=== PATIENT | female | born 1940 | race Caucasian/White ===

== ENCOUNTER 2018-10-11 07:54 | Observation (INO) | payer MEDICARE, OTHER ==
[2018-10-10 13:20] LABS: BASOPHILS % 0.7 % (0.0-1.0); EOSINOPHILS # (AUTO) 0.1 (0.0-0.4); EOSINOPHILS % 2.2 % (0.0-6.0); HEMATOCRIT 43.7 % (34.2-44.1); HEMOGLOBIN 15.1 g/dL (12.0-16.0); LYMPHOCYTES # (AUTO) 1.6 (1.0-3.2); LYMPHOCYTES % 26.8 % (18.0-39.1); MEAN CORPUSCULAR HEMOGLOBIN 30.6 pg (28-32); MEAN CORPUSCULAR HGB CONC 34.6 g/dL (31-35); MEAN CORPUSCULAR VOLUME 88.5 fL (81-99); MONOCYTES # (AUTO) 0.6 (0.2-0.8); MONOCYTES % 9.9 % (4.4-11.3); NEUTROPHILS # (AUTO) 3.6 (2.1-6.9); NEUTROPHILS % 60.1 % (38.7-80.0); PLATELET COUNT 156 x10e3/uL (140-360); RED BLOOD COUNT 4.94 x10e6/uL (3.6-5.1); RED CELL DISTRIBUTION WIDTH 12.9 % (11.7-14.4)
--- NOTE | 2018-10-10 13:24 | Diagnostic Imaging Report ---
EXAMINATION: CHEST 2 VIEWS INDICATION: Pre-admit. COMPARISON: None FINDINGS: TUBES and LINES: None. LUNGS: Lungs are well inflated. Lungs are clear. There is no evidence of pneumonia or pulmonary edema. PLEURA: No pleural effusion or pneumothorax. HEART AND MEDIASTINUM: The cardiomediastinal silhouette is unremarkable. Tortuous thoracic aorta with atherosclerotic calcifications. BONES AND SOFT TISSUES: There is moderate loss of vertebral body height at T11 and T12 with focal kyphosis at this level, with an angulation of 47 degrees. UPPER ABDOMEN: No free air under the diaphragm. Surgical changes in the left upper abdomen. IMPRESSION: Clear lungs. Age-indeterminate moderate loss vertebral body height at T11 and T12 with focal kyphosis at this level. Signed by: Dr. Aaron Bosch MD on 10/10/2018 1:20 PM
[2018-10-10 13:31] LABS: INR 0.92; PROTHROMBIN TIME 12.9 seconds (11.9-14.5)
[2018-10-10 13:32] LABS: PARTIAL THROMBOPLASTIN TIME 35.9 seconds (23.8-35.5)
[2018-10-10 13:36] LABS: ANION GAP 13.4 mmol/L (8-16); CALCIUM 10.8 mg/dL (8.4-10.2); CREATININE, SERUM 0.99 mg/dL (0.57-1.11); POTASSIUM 4.4 mmol/L (3.5-5.1)
[~2018-10-11] VITALS: Ht 165.1 cm; Wt 81.2 kg
[~2018-10-11 07:54] MED LIST: ACETAMINOPHEN 1000 MG/100 ML 100 ML IV ONE; ALEVE PO; ALPHA LIPOIC A300 MG PO; ATENOLOL50 MG PO; BACITRACIN 50,000 UNIT VIAL ONE; BACTRIM DS TAB1 EACH PO; BUPIVACAINE 0.5%/EPI 30 ML SDV INJ ONE; ECOTRIN81 MG PO; GELATIN SPONGE 12-7MM ONE; HYDROCHLOROTHIA25 MG PO; LABETALOL HCL200 MG PO; LIDOCAINE HCL (LTA) 4 ML SOLN ONE; MECLIZINE HCL12.5 MG PO; NORVASC5 MG PO; POTASSIUM PO; STOOL SOFTENER100 MG PO; TAURINE PO; THROMBIN FOR SOLN 5,000 UNIT VIAL ONE; VITAMIN BCOMPLEX PO
--- OUTSIDE RECORDS SUMMARY | 2018-10-11 07:57 | XMS REPORT ---
Author Author [facility] Address Unknown Phone Unavailable Care Team Providers Care Lath Hand Name Role Phone JULIANNA ANTONIO Unavailable Unavailable SAMANTA SHEEHAN Unavailable Unavailable Problems This patient has no known problems. Allergies, Adverse Reactions, Alerts This patient has no known allergies or adverse reactions. Medications This patient has no known medications. Results Test Description Test Time Test Comments Text Results Atomic Results Result Comments CHEST 2 VIEWS 2018-10-10 13:16:00 [place] [address] Patient Name: DENNISE TRIANA MR #: [id number] : 1940 Age/Sex: 78/F Req #: [id number] Adm Physician: Ordered by: JULIANNA ANTONIO MD Report #: [id number] Location: OR Room/Bed: Procedure: [id number] DX/CHEST 2 VIEWS Exam Date: 10/10/18 Exam Time: 1250 REPORT STATUS: Signed EXAMINATION: CHEST 2 VIEWS INDICATION: Pre-admit. COMPARISON: None FINDINGS: TUBES and LINES: None. LUNGS: Lungs are well inflated. Lungs are clear. There is no evidence of pneumonia or pulmonary edema. PLEURA: No pleural effusion or pneumothorax. HEART AND MEDIASTINUM: The cardiomediastinal silhouette is unremarkable. Tortuous thoracic aorta with atherosclerotic calcifications. BONES AND SOFT TISSUES: There is moderate loss of vertebral body height at T11 and T12 with focal kyphosis at this level, with an angulation of 47 degrees. UPPER ABDOMEN: No free air under the diaphragm. Surgical changes in the left upper abdomen. IMPRESSION: Clear lungs. Age-indeterminate moderate loss vertebral body height at T11 and T12 with focal kyphosis at this level. Signed by: Dr. Wilver Griffin MD on 10/10/2018 1:20 PM Dictated By: WILVER GRIFFIN MD 1320 Transcribed By: CLEO on 10/10/18 1320 COPY TO: JULIANNA ANTONIO MD MRA NECK WO [place] [address] Patient Name: DENNISE TRIANA MR #: [id number] : 1940 Age/Sex: 76/F Req #: [id number] Adm Physician: SAMANTA SHEEHAN MD Ordered by: ROSIBEL COULTER MD Report #: [id number] Location: MED/SURG Room/Bed: [facility] Procedure: [id number] MRI/MRA NECK WO Exam Date: 02/08/17 Exam Time: 954 REPORT STATUS: Signed Examination: MRA NECK AND HEAD WITHOUT CONTRAST History: Unsteady gait. Headache. Comparison studies: No direct comparison. Technique: 2-D and 3-D [id number] MR angiograms of the cervical and intracranial circulations were obtained. MIP images of the arteries were isolated into the right and left cervical circulations and anterior and posterior intracranial circulations, 180 degree projections. Sagittal and coronal MPR images, and axial source images are available for evaluation. Degree of stenosis at the carotid bulbs, if present, will be calculated using NASCET criteria where the smallest diameter at the location of stenosis is compared to the diameter of the more distal non-diseased vessel lumen. Findings: Cervical MRA Aortic arch: Normal 3 great vessel origin. Patent. Internal carotid arteries: No flow abnormalities at the origins of the common carotid arteries, the cervical carotid bifurcations or in the cervical segments. Vertebral arteries: No flow abnormalities at the origins of the vertebral arteries or through its cervical segments (V1-V3). Intracranial MRA: Internal carotid arteries: Patent. Mild atherosclerotic irregularity of the cavernous internal carotid artery on the left. Anterior cerebral arteries: Patent A1 segments. Middle cerebral arteries: Patent M1 segments. Vertebrobasilar circulation: Patent. Posterior cerebral arteries: Patent bilaterally. Anatomical variants: Anterior communicating arteries: Patent. Posterior communicating arteries: Not visualized bilaterally. Vertebral arteries:Codominant. IMPRESSION: 1. No cervical or intracranial arterial stenosis or occlusion. 2. Mild atherosclerotic irregularity of the cavernous segment of the left internal carotid artery without stenosis. Signed by: Dr. Dahlia Jiang M.D. on 02/08/2017 1:54 PM Dictated By: DAHLIA KRISHNAN MD 1354 Transcribed By: CLEO on 02/08/17 1354 COPY TO: ROSIBEL COULTER MD MRA HEAD WO [place] [address] Patient Name: DENNISE TRIANA MR #: [id number] : 1940 Age/Sex: 76/F Req #: [id number] [facility] Physician: SAMANTA SHEEHAN MD Ordered by: ROSIBEL COULTER MD Report #: [id number] Location: MED/SURG Room/Bed: [facility] Procedure: MRI/MRA HEAD WO Exam Date: 02/08/17 Exam Time: 954 REPORT STATUS: Signed Examination: MRA NECK AND HEAD WITHOUT CONTRAST History: Unsteady gait. Headache. Comparison studies: No direct comparison. Technique: 2-D and 3-D [id number] MR angiograms of the cervical and intracranial circulations were obtained. MIP images of the arteries were isolated into the right and left cervical circulations and anterior and posterior intracranial circulations, 180 degree projections. Sagittal and coronal MPR images, and axial source images are available for evaluation. Degree of stenosis at the carotid bulbs, if present, will be calculated using NASCET criteria where the smallest diameter at the location of stenosis is compared to the diameter of the more distal non-diseased vessel lumen. Findings: Cervical MRA Aortic arch: Normal 3 great vessel origin. Patent. Internal carotid arteries: No flow abnormalities at the origins of the common carotid arteries, the cervical carotid bifurcations or in the cervical segments. Vertebral arteries: No flow abnormalities at the origins of the vertebral arteries or through its cervical segments (V1-V3). Intracranial MRA: Internal carotid arteries: Patent. Mild atherosclerotic irregularity of the cavernous internal carotid artery on the left. Anterior cerebral arteries: Patent A1 segments. Middle cerebral arteries: Patent M1 segments. Vertebrobasilar circulation: Patent. Posterior cerebral arteries: Patent bilaterally. Anatomical variants: Anterior communicating arteries: Patent. Posterior communicating arteries: Not visualized bilaterally. Vertebral arteries:Codominant. IMPRESSION: 1. No cervical or intracranial arterial stenosis or occlusion. 2. Mild atherosclerotic irregularity of the cavernous segment of the left internal carotid artery without stenosis. Signed by: Dr. Dahlia Jiang M.D. on 02/08/2017 1:54 PM Dictated By: DAHLIA KRISHNAN MD 1351 Transcribed By: CLEO on 02/08/17 1351 COPY TO: ROSIBEL COULTER MD MRI BRAIN WO [place] [address] Patient Name: DENNISE TRIANA MR #: [id number] : 1940 Age/Sex: 76/F Req #: [id number] Adm Physician: SAMANTA SHEEHAN MD Ordered by: ROSIBEL COULTER MD Report #: [id number] Location: MED/SURG Room/Bed: 1121 Procedure: [id number] MRI/MRI BRAIN WO Exam Date: 02/08/17 Exam Time: 954 REPORT STATUS: Signed Examination: MRI BRAIN WITHOUT CONTRAST History: Unsteady gait. Headache. Comparison studies: Head CT performed February 07, 2017. Technique: Sagittal T2; axial DWI, FLAIR, GRE or SWI, T1, Coronal FLAIR. Intravenous contrast: None Findings: Scalp: No abnormal signal. No masses. Bone marrow: Normal in signal intensity. Brain volume: Adequate for age. No volume loss. Ventricles: Normal in size and configuration. No hydrocephalus. Extra-axial spaces: No abnormalities. Parenchyma: There are patchy areas of T2/FLAIR hyperintensity in the periventricular and subcortical white matter, nonspecific. No masses, hemorrhage, or acute vascular insults. Suprasellar and sellar region: CSF filled sella. Craniocervical junction: No abnormalities. The foramen magnum is patent. No Chiari malformations. Vessels: Normal flow-voids in the arteries and sinuses. Additional findings:Partially visualized disc bulge at C3-C4. IMPRESSION: 1. No acute intracranial abnormalities. No change from prior head CT performed February 07, 2017 when accounting for differences in technique. 2. Unchanged mild chronic microvascular ischemic change. Signed by: Dr. Dahlia Jiang M.D. on 02/08/2017 1:48 PM Dictated By: DAHLIA JIANG MD 1342 Transcribed By: CLEO on 02/08/17 1348 COPY TO: ROSIBEL COULTER MD CT BRAIN WO [place] [address] Patient Name: DENNISE TRIANA #: [id number] : 1940 Age/Sex: 76/F Req #: [id number] [facility] Physician: Ordered by: ROSIBEL COULTER MD Report #: [id number] Location: Room/Bed: Procedure: [id number] CT/CT BRAIN WO Exam Date: 02/07/17 Exam Time: 1245 REPORT STATUS: Signed Examination: CT BRAIN WITHOUT CONTRAST History:Off balance. Falls to the left. Dizziness. Comparison studies:None Technique: Axial images were obtained from the skull base to the vertex. Coronal and sagittal images reconstructed from the axial data. Intravenous contrast: None Findings: Scalp: No abnormalities. Bones: No fractures, blastic or lytic lesions. Brain sulci: Appropriate for age. Ventricles: Normal in size and configuration. No hydrocephalus. Extra-axial space: No abnormalities. Parenchyma: There are mild patchy areas of hypoattenuation in the periventricular and subcortical white matter, nonspecific. Chronic left subinsular cortex and right putaminal lacunar infarcts. No masses, hemorrhage, or acute cortical-based vascular insults. Sellar/suprasellar region: CSF filled sella. Craniocervical junction: Patent foramen magnum. No Chiari one malformation. Incidental findings: Atherosclerotic calcification of the cavernous and supraclinoid internal carotid and V4 segments of the bilateral vertebral arteries. Impression: 1. No acute intracranial abnormalities. 2. Chronic lacunar infarcts, as above. 3. Mild chronic microvascular ischemic change. Signed by: Dr. Dahlia Jiang M.D. on 02/07/2017 1:12 PM Dictated By: DAHLIA KRISHNAN MD 1312 Transcribed By: CLEO on 02/07/17 1312 COPY TO: ROSIBEL COULTER MD
[2018-10-11] MEDS ORDERED: IBUPROFEN 800MG/ 250ML 250 ML IV ONE (08:07)
[2018-10-11] MEDS ORDERED: CEFAZOLIN SOD 2 GM/D5W 50ML 50 ML IV ONE (08:17)
[2018-10-11] MEDS ORDERED: TRAMADOL HCL100 MG (08:25)
[2018-10-11] MEDS ORDERED: [UNRECOGNIZED DRUG - OTHER] BLADIN (08:25)
[2018-10-11] MEDS: LACTATED RINGER'S 1,000 ML IV SCH ×2 (10:06→18:26)
[2018-10-11] MEDS ORDERED: PROMETHAZINE HCL (IM) 25 MG/ML VIAL IM PRN (10:15)
[2018-10-11] MEDS ORDERED: OXYCODONE/ACETAMINOPHEN 5-325 1 EACH TABLET PO PRN (10:15)
[2018-10-11] MEDS ORDERED: ACETAMINOPHEN 325 MG TAB PO PRN (10:15)
[2018-10-11] MEDS ORDERED: MAGNESIUM/ALUMINUM/SIMETHICONE 30 ML UDC PO PRN (10:15)
[2018-10-11] MEDS ORDERED: ZOLPIDEM TARTRATE 5 MG TAB PO PRN (10:15)
[2018-10-11] MEDS ORDERED: MORPHINE SULFATE 5 MG/ML VIAL IM PRN (10:15)
[2018-10-11] MEDS ORDERED: HYDROMORPHONE 2MG/ML 2 MG/ML ML IV PRN (10:15)
[2018-10-11] MEDS ORDERED: ONDANSETRON HCL INJ 2MG/ML 2ML 2 MG/ML VIAL IV PRN (10:15)
[2018-10-11] MEDS ORDERED: HYDRALAZINE HCL 20 MG/ML VIAL ONE (11:07)
--- NOTE | 2018-10-11 12:18 | NUR ---
Patient transferred to unit from PACU. Patient is post op laminectomy. Dressing to lower back clean and dry. Lung [place] clear to auscultation. Bowel sounds present x4 but hypoactive. No edema noted. Patient has been ambulating on her own. Patient has voided post surgical. Right hand IV in place.
[2018-10-11 12:37] VITALS: BP 179/76
[2018-10-11] MEDS ORDERED: MORPHINE SULFATE INJ 4 MG/ML INJ 1ML IM PRN (12:45)
[2018-10-11 12:53] VITALS: BP 179/76
--- NOTE | 2018-10-11 13:39 | Operative Report ---
DATE OF PROCEDURE: 10/11/2018 SURGEON: Jakob Thompson MD PREOPERATIVE DIAGNOSES: Left L4-5 disk herniation with superior migration of the extruded disk fragment with radiculopathy, M51.16. POSTOPERATIVE DIAGNOSES: Left L4-5 disk herniation with superior migration of the extruded disk fragment with radiculopathy, M51.16. PROCEDURE PERFORMED: Left L4-5 laminotomy, medial facetectomy, and microsurgical diskectomy, 62253. ANESTHESIA: General. INDICATIONS: The patient is a 78-year-old woman with L4-5 grade 1 spondylolisthesis, who presents with a left-sided acute disk herniation with superior migration of the extruded disk fragment into the left L4 nerve root axilla. The patient was taken to the operating room for microsurgical diskectomy without fusion. DESCRIPTION OF PROCEDURE: After induction of general anesthesia, the patient was placed on the operating table in prone position over Huy frame. Lumbar region was prepped and draped in sterile fashion. A preoperative x-ray was obtained. A small midline incision was created. Lumbar fascia was opened in left of midline. Subperiosteal dissection was carried out to expose the left-sided of L4 and L5 lamina and the medial aspect of the facet joint. A second x-ray confirmed correct localization. The operating microscope was brought in. A high-speed drill equipped with lulú bur was used to drill the inferior aspect of the lamina of L4 and the medial rim of the L4-5 facet joint and superior rim of the lamina of L5. The hypertrophic ligamentum flavum was resected and lateral margin of the dural sac and the L5 traversing nerve root were exposed. The herniated disk material came into view above the origin of the L5 nerve root and was mobilized with a micro ball probe and grasped with a pituitary rongeur and removed. This maneuver was repeated multiple times and several additional fragments of extruded disk were retrieved and removed until the axilla of the L4 nerve root was fully exposed and decompressed. Meticulous hemostasis was secured. Retraction was removed. Lumbar fascia was closed with 0 Vicryl suture. Subcutaneous layer was closed with 2-0 Vicryl sutures. The skin was closed with 3-0 Monocryl sutures in subcuticular fashion. Steri-Strips and dressing were applied. The patient was awakened, extubated, and taken to postanesthesia care in stable condition. No intraoperative complications were encountered. Estimated blood loss was 10 mL. Jakob Thompson MD PP/CITLALLI /[id number]
[2018-10-11] MEDS: CEFAZOLIN SOD 1 GM/NS 50ML 50 ML IV SCH ×2 (13:55→21:59)
[2018-10-11 15:49] VITALS: BP 173/79
[2018-10-11] MEDS ORDERED: GLYCOPYRROLATE INJ 1MG/ 5 ML SYR ONE (18:09)
[2018-10-11] MEDS ORDERED: LIDOCAINE HCL 2% LOCAL INJ 5 ML SDV VIAL INJ ONE (18:09)
[2018-10-11] MEDS ORDERED: ROCURONIUM BROMIDE 10 MG/ML 5ML VIAL ONE (18:09)
[2018-10-11] MEDS ORDERED: ONDANSETRON HCL INJ 2MG/ML 2ML 2 MG/ML VIAL ONE (18:09)
[2018-10-11] MEDS ORDERED: NEOSTIGMINE 5 MG/5ML SYR ONE (18:09)
[2018-10-11] MEDS ORDERED: PROPOFOL IV EMULSION 10 MG/ML 20 ML VIAL ONE (18:09)
[2018-10-11] MEDS ORDERED: DEXAMETHASONE SOD PHOS INJ 4 MG/ML VIAL ONE (18:09)
[2018-10-11] MEDS ORDERED: SEVOFLURANE INHAL SOLN 250 ML PEN BTL ONE (18:09)
[2018-10-11] MEDS ORDERED: FENTANYL CITRATE/PF 100MCG/2 ML INJ ONE (18:32)
[2018-10-11] MEDS ORDERED: MIDAZOLAM HCL 2 MG/2 ML VIAL ONE (18:32)
--- NOTE | 2018-10-11 19:10 | NUR ---
RECEIVED PATIENT AAOX3, DENIES PAIN. FAMILY MEMBER AT BEDSIDE. BED LOCKED AND IN LOWEST POSITION, CALL LIGHT WITHIN EASY REACH. INSTRUCTED TO CALL FOR ASSISTANCE NEEDED , PATIENT VERBALIZED UNDERSTANDING.
[2018-10-11 19:43] VITALS: BP 165/73
[2018-10-11 21:40] VITALS: BP 165/73
[2018-10-11] MEDS: CEPACOL SORE THROAT LOZENGES PO PRN (22:14)
[2018-10-12 00:09] VITALS: BP 145/65
[2018-10-12] MEDS: LACTATED RINGER'S 1,000 ML IV SCH (02:46)
[2018-10-12 04:00] VITALS: BP 133/64
[2018-10-12] MEDS: CEFAZOLIN SOD 1 GM/NS 50ML 50 ML IV SCH (06:43)
--- NOTE | 2018-10-12 07:00 | NUR ---
BEDSIDE ROUNDS COMPLETE NO DISTRESS NOTED UPDATED ON POC VOICED UNDERSTANDING, DENIES PAIN AT THIS TIME, CALL LIGHT IN REACH WILL CONTINUE TO MONITOR
[2018-10-12] MEDS ORDERED: NORCO 7.5-3251 EACH PO (07:42)
[2018-10-12 08:13] VITALS: BP 137/63
[2018-10-12 08:34] VITALS: BP 137/63
[2018-10-12] MEDS ORDERED: AMLODIPINE BESYLATE 5 MG TAB PO SCH (09:00)
[2018-10-12] MEDS: CEPACOL SORE THROAT LOZENGES PO PRN (10:03)
== END 2018-10-12 10:05 | disposition home or self-care (01) ==
LOC: OR 07:54 → PACU V 10:07 → MED/SURG 12:19
PROVIDERS: ADMIT Neurological Surgery; ATTEND Neurological Surgery
DX: M51.16 Intervertebral disc disorders with radiculopathy, lumbar region (principal); M51.26 Other intervertebral disc displacement, lumbar region; Z01.812 Encounter for preprocedural laboratory examination; Z01.810 Encounter for preprocedural cardiovascular examination; Z01.811 Encounter for preprocedural respiratory examination; Z88.8 Allergy status to other drugs, medicaments and biological substances
CPT/HCPCS: 36415; 63047; 71046; 72020; 80048; 85025; 85610; 85730; 86850; 86900; 88304; 93005; G0378 ×2; J0131; J0360; J0690 ×3; J1100; J1170; J2001; J2250; J2405; J2704; J3490